=== PATIENT | male | born 1965 | race African-American/Black ===

== ENCOUNTER 2018-02-05 04:35 | Observation (INO) | payer MEDICAID ==
[~2018-02-05] VITALS: Ht 182.9 cm; Wt 103.9 kg
[2018-02-05 04:43] VITALS: Ht 182.9 cm; Wt 103.9 kg
--- NOTE | 2018-02-05 04:51 | NUR ---
EK IN PROGESS IN ROOM T1
--- NOTE | 2018-02-05 04:58 | NUR ---
PT PRESENTS TO ER TODAY WITH C/O OF CP X 1 HOUR. PT REPORTS BEING ASLEEP APPROX 1 HOUR AGO WHEN HE WAS WOKEN UP BY CP AND SOB. PT STATES CP ON THE L SIDE OF SIDE CHEST NON RADIATING. PT STATES CP IS THROBBING AND RATES IT 7/10. PT ALSO COMPLAINING OF SOB. LUNG SOUNDS CLEAR BILATERALLY IN ALL 4 LOBES ON ASCULTATION. PT ALSO STATES " THE CHEST PAIN IS NOT BAD EARLIER". 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 PT A&O X4. RESP EQUAL AND UNLABORED. NO ACUTE DISTRESS NOTED. SIGNIFICANT OTHER AT BEDSIDE.
--- NOTE | 2018-02-05 05:33 | NUR ---
PT SEEN WALKING OUT OF T1 AND AMBULATING WITH GOWN FALLING OFF AND WALKING WITH PT. WHEN ASKED WHERE THEY WERE GOING, STATED PT WANTED TO GET SOME AIR. REQUESTED PT TO STOP AND WE WILL GET HIM WHEELCHAIR, PT CONTINUED TO WALK DOWN THORNTON GOWN WAS FALLING DOWN. STAFF CONTINUED TO REQUEST TO PT TO STOP DUE TO RISK OF FALLING WITH GOWN BEING AROUND HIS LEGS AT THIS POINT. PT CONTINUED TO STATE "I JUST NEED SOME AIR, I JUST NEED SOME AIR". PT [facility], PT WAS INFORMED THAT IS NOT THE EXIT TO THE OUTSIDE, PT STOPPED. PT WAS THEN ASSISTED TO WHEELCHAIR AND PT WAS NOTED TO BE DIAPHORETIC TO HIS HEAD. PT CONTINUED TO STATE HE WAS NEEDING AIR, PT WAS WHEELED OUT TO AMBULANCE BAY IN WHEELCHAIR WITH HIS AND 3 NURSES AND EMT AT PT SIDE. PT STATED TO FEELING BETTER AFTER GETTING FRESH AIR. PT WHEELED BACK TO THE ROOM AND PT STATED "I'M NOT READY TO LAY DOWN YET". PT INFORMED THAT HE WILL HAVE TO RETURN TO [facility] IN ORDER TO BEGIN IV AND MED ADMINISTERATION. PT GAVE UNDERSTANDING AND STATED HE WILL MOVE TO [facility], BUT WAS NOT READY AT THIS TIME.
--- NOTE | 2018-02-05 05:45 | NUR ---
FAN BROUGHT TO PT BEDSIDE BY EMT GABRIELA FOR COMFORT MEASURES.
--- NOTE | 2018-02-05 06:45 | NUR ---
PT APPEARS TO BE RESTING COMFORTABLY WITH EYES CLOSED. PT HYPERTENSIVE AT 143/84 ALL OTHER VITALS WNL, WILL CONTINUE TO MONITOR. PT STATES HE IS "FEELING BETTER" AND REPORTS NO PAIN AT THIS TIME. NO ACUTE DISTRESS NOTED.
[2018-02-05 06:50] LABS: BASOPHIL % 0.2 % (0-2); PLATELET COUNT 213 x10^3mcL (130-400); RED CELL DISTRIBUTION WIDTH 13.7 % (11.5-14.5)
[2018-02-05 07:09] LABS: CALCIUM 9.2 mg/dL (8.5-10.1); CARBON DIOXIDE 28.9 mmol/L (21-32); CREATININE SERUM 1.4 mg/dL (0.7-1.3); POTASSIUM SERUM 3.9 mmol/L (3.5-5.1)
[2018-02-05 07:13] LABS: ALBUMIN 3.7 g/dL (3.4-5.0); BILIRUBIN TOTAL 1.4 mg/dL (0.20-1.00); TOTAL PROTEIN, SERUM 7.4 g/dL (6.4-8.2)
--- NOTE | 2018-02-05 07:28 | NUR ---
RECIEVED REPORT FROM MILANA REYNOLDS
--- NOTE | 2018-02-05 07:57 | NUR ---
PT REQUESTING FOOD AT THIS TIME; OK'D TO EAT AND TO ORDER REGULAR DIET MEAL
--- NOTE | 2018-02-05 08:14 | NUR ---
PT PROVIDED WITH BREAKFAST TRAY AND SOCKS PER REQUEST. REMAINS ON GURNEY IN POSITION OF COMFORT
--- NOTE | 2018-02-05 12:15 | NUR ---
PT PROVIDED WITH LUNCH TRAY
[2018-02-05 12:33] LABS: CHOLESTEROL/HDL RATIO 2.1
--- NOTE | 2018-02-05 12:44 | NUR ---
PT PROVIDED SANDWICH
--- NOTE | 2018-02-05 13:29 | NUR ---
CALLED REPORT TO MILANA BRAUN TO ASSUME CARE OF PT IN TELE.
--- NOTE | 2018-02-05 14:20 | NUR ---
RECEIVED PT FROM ED VIA [employer], CAME IN DUE TO CHEST PAIN. AAOX4. DENIES HEADACHE/DIZZINESS. NO SOB NOTED, LUNG SOUNDS CTA. DENIES CHEST PAIN/PRESSURE AT THIS TIME, SR W/ DEPRESSED T WAVE. DENIES ABDOMINAL DISCOMFORT. BOWEL SOUNDS ACTIVE. IV SITE PATENT AND INTACT. AT BEDSIDE. SIDE RAILS UPX2. CALL LIGHT ON REACH. WILL CONT TO MONITOR.
[2018-02-05 14:27] VITALS: BP 117/81
[2018-02-05 16:50] VITALS: BP 127/83
--- NOTE | 2018-02-05 17:17 | NUR ---
PT SEEN AMBULATING IN THE HALLWAY W/ HIS , NO C/O CHEST PAIN AND SOB. IV SITE ON THE RAC IS PATENT AND INTACT. SIDE RAILS UPX2. CALL LIGHT ON REACH. WILL CONT TO MONITOR
--- NOTE | 2018-02-05 19:20 | NUR ---
PT LYING IN BED, AAOX4. DENIES HEADACHE/DIZZINESS. ABLE TO FOLLOW COMMANDS. NO SOB NOTED. DENIES CHEST PAIN/PRESSURE, SR W/ DEPRESSED T. DENIES ABDOMINAL DISCOMFORT. BOWEL SOUNDS ACTIVE. VOIDS. IV SITE ON THE RAC IS PATENT AND INTACT. SIDE RAILS UPX2. CALL LIGHT ON REACH. AT BEDSIDE. WILL CONT TO MONITOR
--- NOTE | 2018-02-05 23:09 | NUR ---
PT LYING IN BED, WATCHING TV. NO C/O PAIN AND SOB. WILL CONT TO MONITOR
[2018-02-05 23:11] VITALS: BP 126/77
--- NOTE | 2018-02-06 03:10 | NUR ---
PT HAS HIS EYES CLOSED, NO C/O PAIN. AT BEDSIDE. CALL LIGHT ON REACH. WILL CNT TO MONITOR
[2018-02-06 05:28] VITALS: BP 132/79
--- NOTE | 2018-02-06 06:14 | NUR ---
PT HAS HIS EYES CLOSED, NO C/O PAIN AND SOB. IV SITE ON THE RAC IS PATENT AND INTACT. SIDE RAILS UPX2. CALL LIGHT ON REACH. NEEDS ARE ATTENDED. WILL ENDORSE TO INCOMING SHIFT.
[2018-02-06 06:59] LABS: BASOPHIL % 0.1 % (0-2); PLATELET COUNT 202 x10^3mcL (130-400); RED CELL DISTRIBUTION WIDTH 13.6 % (11.5-14.5)
[2018-02-06 07:17] LABS: CALCIUM 8.8 mg/dL (8.5-10.1); CHLORIDE SERUM 101 mmol/L (98-107); CREATININE SERUM 1.2 mg/dL (0.7-1.3); GFR1 > 60 mL/min; GLUCOSE SERUM 137 mg/dL (74-106); POTASSIUM SERUM 3.8 mmol/L (3.5-5.1); SODIUM SERUM 135 mmol/L (136-145)
--- NOTE | 2018-02-06 07:19 | NUR ---
bedside report given to incoming nurse mónica for continuity of care
[2018-02-06 09:00] VITALS: BP 136/87
--- NOTE | 2018-02-06 09:25 | NUR ---
AAO TIMES 4. TELE # 17 SR. LUNGS CTA. NO SOB. O2 SAT ON RA 97%. BS'S ACTIVE TIMES 4. PATRICIA SIDHU. IV SITE RAC PATENT, CDI. COOPERATIVE. PATIENTS GIRLFRIEND AT BEDSIDE.
[2018-02-06 09:28] VITALS: BP 132/79
--- NOTE | 2018-02-06 10:06 | NUR ---
DC'D SL ANGIO INTACT. GAVE DISCHARGE INSTRUCTIONS, NO PRESCRIPTION. PATIENT VERBALIZDED "I UNDERSTAND" TO INSTRUCTIONS. PATIENTS AT BEDSIDE.
== END 2018-02-06 12:02 | disposition home or self-care (01) | DRG 816 ==
LOC: ED 04:35 → DU 08:43
PROVIDERS: Emergency Medicine; ADMIT Internal Medicine
DX: T40.5X1A Poisoning by cocaine, accidental (unintentional), initial encounter (principal); F14.10 Cocaine abuse, uncomplicated; I10 Essential (primary) hypertension; R07.89 Other chest pain; F17.210 Nicotine dependence, cigarettes, uncomplicated; Z68.31 Body mass index [BMI] 31.0-31.9, adult; Z91.19 Patient's noncompliance with other medical treatment and regimen; Y92.009 Unspecified place in unspecified non-institutional (private) residence as the place of occurrence of the external cause
CPT/HCPCS: 83880; 99406; G0378

== ENCOUNTER 2018-09-13 20:25 | Emergency (ER) | payer SELFPAY ==
[~2018-09-13] VITALS: Ht 182.9 cm; Wt 104.3 kg
[2018-09-13 20:46] VITALS: Ht 182.9 cm; Wt 104.3 kg
[2018-09-13 21:31] VITALS: BP 152/90
== END 2018-09-13 21:31 | disposition home or self-care (01) ==
LOC: ED 20:25
DX: M54.5 Low back pain (principal); I10 Essential (primary) hypertension; W01.0XXA Fall on same level from slipping, tripping and stumbling without subsequent striking against object, initial encounter; Y93.89 Activity, other specified; Y92.89 Other specified places as the place of occurrence of the external cause; Y99.8 Other external cause status

== ENCOUNTER 2018-11-01 07:44 | Emergency (ER) | payer MEDICAID ==
[~2018-11-01] VITALS: Ht 182.9 cm; Wt 107.5 kg
[2018-11-01 07:56] VITALS: Ht 182.9 cm; Wt 107.5 kg
[2018-11-01 10:34] VITALS: BP 138/81
== END 2018-11-01 10:34 | disposition home or self-care (01) ==
LOC: ED 07:44
DX: M54.5 Low back pain (principal); I10 Essential (primary) hypertension

== ENCOUNTER 2019-01-05 17:45 | Emergency (ER) | payer BC ==
[~2019-01-05] VITALS: Ht 182.9 cm; Wt 104.3 kg
[2019-01-05 17:50] VITALS: Ht 182.9 cm; Wt 104.3 kg
[2019-01-05 20:20] VITALS: BP 134/83
== END 2019-01-05 20:20 | disposition home or self-care (01) ==
LOC: ED 17:45
DX: S76.191A Other specified injury of right quadriceps muscle, fascia and tendon, initial encounter (principal); S00.211A Abrasion of right eyelid and periocular area, initial encounter; W01.0XXA Fall on same level from slipping, tripping and stumbling without subsequent striking against object, initial encounter; Y93.89 Activity, other specified; Y92.89 Other specified places as the place of occurrence of the external cause; Y99.8 Other external cause status
CPT/HCPCS: Q0092

== ENCOUNTER 2019-02-20 05:47 | Emergency (ER) | payer BC ==
[~2019-02-20] VITALS: Ht 182.9 cm; Wt 112.5 kg
[2019-02-20 05:49] VITALS: Ht 182.9 cm; Wt 112.5 kg
[2019-02-20 06:00] VITALS: BP 134/82
== END 2019-02-20 06:00 | disposition home or self-care (01) ==
LOC: ED 05:47
DX: S01.01XD Laceration without foreign body of scalp, subsequent encounter (principal); X58.XXXD Exposure to other specified factors, subsequent encounter

== ENCOUNTER 2019-11-03 04:43 | Emergency (ER) | payer OTHER ==
[~2019-11-03] VITALS: Ht 182.9 cm; Wt 108.1 kg
[2019-11-03 04:49] VITALS: Ht 182.9 cm; Wt 108.1 kg
[2019-11-03 07:29] VITALS: BP 140/86
== END 2019-11-03 07:29 | disposition home or self-care (01) ==
LOC: ED 04:43
DX: K46.0 Unspecified abdominal hernia with obstruction, without gangrene (principal); I10 Essential (primary) hypertension
CPT/HCPCS: Q0092